=== PATIENT | male | born 2000 | race Caucasian/White ===

== ENCOUNTER 2020-09-07 18:53 | Emergency (ER) | payer OTHER ==
[~2020-09-07] VITALS: Ht 182.9 cm; Wt 79.4 kg
[2020-09-07] MEDS ORDERED: DULO1CAP6 PO (19:02)
[2020-09-07] MEDS ORDERED: ONDANSETRON 4MG/2ML VIAL IV ONE (19:45)
[2020-09-07] MEDS ORDERED: NS 1,000 ML IV ONE (19:45)
[2020-09-07] MEDS ORDERED: KETOROLAC 30 MG/ML 1ML VIAL IV ONE (19:45)
[2020-09-07 19:50] LABS: BASO % 0.2 % (0.0-1.0); EOS % 0.2 % (0.0-3.0); HEMOGLOBIN 15.4 g/dl (13.5-17.5); LYMPH # 0.8 10^3/uL (1.5-5.0); LYMPH % 8.6 % (24.0-44.0); MEAN CORPUSCULAR HEMOGLOBIN 31.2 pg (27.0-33.0); MEAN CORPUSCULAR HGB CONC 33.5 g/dl (32.0-36.5); MEAN CORPUSCULAR VOLUME 93.1 fl (80.0-96.0); MONO # 0.6 10^3/uL (0.0-0.8); MONO % 6.6 % (2.0-8.0); NEUTROPHILS # 7.6 10^3/uL (1.5-8.5); NEUTROPHILS % 84.2 % (36.0-66.0); PLATELET COUNT, AUTOMATED 210 10^3/uL (150-450); RED BLOOD COUNT 4.94 10^6/uL (4.30-6.10); WHITE BLOOD COUNT 9.1 10^3/uL (4.0-10.0)
[2020-09-07 20:19] LABS: ALBUMIN 4.7 GM/DL (3.2-5.2); BILIRUBIN,DIRECT 0.2 MG/DL (0.0-0.2)
--- NOTE | 2020-09-07 20:21 | REPVR ---
PROCEDURE INFORMATION: Exam: CT Abdomen And Pelvis Without Contrast Exam date and time: 09/07/2020 7:52 PM Age: 20 years old Clinical indication: Abdominal pain; Additional info: Left flank/lateral abdominal pain; R/O stone TECHNIQUE: Imaging protocol: Computed tomography of the abdomen and pelvis without contrast. Radiation optimization: All CT scans at this facility use at least one of these dose optimization techniques: automated exposure control; mA and/or kV adjustment per patient size (includes targeted exams where dose is matched to clinical indication); or iterative reconstruction. COMPARISON: No relevant prior studies available. FINDINGS: Liver: Normal. No mass. Gallbladder and bile ducts: Normal. No calcified stones. No ductal dilation. Pancreas: Normal. No ductal dilation. Spleen: Normal. No splenomegaly. Adrenal glands: Normal. No mass. Kidneys and ureters: There is a 4 mm. obstructive ureteral calculus located proximal left ureter at the UV junction resulting in [id number] proximal hydroureteronephrosis. There is no significant periureteral and perinephric stranding. No urinoma demonstrated. Stomach and bowel: Unremarkable. No obstruction. No mucosal thickening. Appendix: No evidence of appendicitis. Intraperitoneal space: Unremarkable. No free air. No significant fluid collection. Vasculature: Unremarkable. No abdominal aortic aneurysm. Lymph nodes: Unremarkable. No enlarged lymph nodes. Urinary bladder: Unremarkable as visualized. Reproductive: Unremarkable as visualized. Bones/joints: Unremarkable. No acute fracture. Soft tissues: Unremarkable. IMPRESSION: 4 mm obstructive proximal left ureteral calculus as described above. Electronically signed by: Jg Bull On 09/07/2020 20:21:45 PM
[2020-09-07] MEDS ORDERED: CIPR-249 PO (22:25)
[2020-09-07] MEDS ORDERED: ONDA4TAB6 PO (22:25)
[2020-09-07] MEDS ORDERED: KETO10TAB PO (22:25)
[2020-09-07] MEDS ORDERED: FLOM0.4C39 PO (22:25)
[2020-09-07] MEDS ORDERED: PERC5TAB12 PO (22:25)
[2020-09-07] MEDS ORDERED: TAMSULOSIN 0.4 MG CAP PO ONE (22:30)
[2020-09-07] MEDS ORDERED: CIPROFLOXACIN 500MG TABLET PO ONE (22:30)
[2020-09-07 22:44] VITALS: BP 126/66
== END 2020-09-07 22:59 | disposition home or self-care (01) ==
LOC: M ED 18:53
DX: N20.1 Calculus of ureter (principal)
CPT/HCPCS: 74176; 80076; 81001; 83690; 85025; 87086; 96361; 96374; 99284; J1885; J2405

== ENCOUNTER → 2020-09-24 | Outpatient (CLI) | payer OTHER ==
[~2020-09-24] MED LIST: CIPR-249 PO; DULO1CAP6 PO; FLOM0.4C39 PO; KETO10TAB PO; ONDA4TAB6 PO; PERC5TAB12 PO
--- NOTE | 2020-09-25 03:13 | REPPI ---
INDICATION: URETERAL STONE W/HYDRONEPHROTICS COMPARISON: None. TECHNIQUE: Supine view of the abdomen and pelvis. FINDINGS: A rounded 2-3 mm calcification is identified in the right hemipelvis likely phlebolith. The obstructing left ureteral calculus on CT dated 09/07/2020 is not visible on current examination. Further evaluation of the urinary tract system is limited due to technique and bowel gas pattern. Mild fecal stasis. No bowel obstruction. Skeletal structures are intact. No foreign body. IMPRESSION: Unremarkable examination. No obvious urinary tract calcifications identified. <Electronically signed by Mayco Hogan > 09/25/20 [id number]
== END ==
LOC: M PLAIMG 12:51
PROVIDERS: ATTEND Nurse Practitioner Women's Health
DX: N13.2 Hydronephrosis with renal and ureteral calculous obstruction (principal)

== ENCOUNTER 2021-08-28 13:59 | Inpatient (IN) | payer OTHER ==
[~2021-08-28] VITALS: Ht 177.8 cm; Wt 82.7 kg
[2021-08-28] MEDS ORDERED: IBUP200T46 PO (14:15)
[2021-08-28] MEDS ORDERED: AMPH1CAP14 (14:15)
[2021-08-28 17:41] LABS: HEMATOCRIT 47.4 % (42.0-52.0); HEMOGLOBIN 15.9 g/dl (13.5-17.5); MEAN CORPUSCULAR HEMOGLOBIN 31.3 pg (27.0-33.0); MEAN CORPUSCULAR HGB CONC 33.5 g/dl (32.0-36.5); MEAN CORPUSCULAR VOLUME 93.3 fl (80.0-96.0); PLATELET COUNT, AUTOMATED 223 10^3/uL (150-450); RED BLOOD COUNT 5.08 10^6/uL (4.30-6.10); WHITE BLOOD COUNT 5.1 10^3/uL (4.0-10.0)
[2021-08-28 18:01] LABS: AMPHETAMINES LEVEL URINE NEGATIVE (NEGATIVE); BARBITURATES URINE NEGATIVE (NEGATIVE); BENZODIAZEPINES URINE NEGATIVE (NEGATIVE); CANNABINOIDS URINE NEGATIVE (NEGATIVE); COCAINE METABOLITE URINE NEGATIVE (NEGATIVE); METHADONE URINE NEGATIVE (NEGATIVE); OPIATES URINE NEGATIVE (NEGATIVE); PHENCYCLIDINE URINE NEGATIVE (NEGATIVE)
[2021-08-28 18:13] LABS: ACETAMINOPHEN LEVEL < 2.0 UG/ML (10.0-30.0); ALBUMIN 4.3 GM/DL (3.2-5.2); ALT/SGPT 39 U/L (12-78); BILIRUBIN,DIRECT 0.2 MG/DL (0.0-0.2); BILIRUBIN,TOTAL 0.5 MG/DL (0.2-1.0); BLOOD UREA NITROGEN 25 MG/DL (7-18); CALCIUM LEVEL 9.3 MG/DL (8.5-10.1); CARBON DIOXIDE LEVEL 29 MEQ/L (21-32); CHLORIDE LEVEL 107 MEQ/L (98-107); ETHYL ALCOHOL (ETHANOL) < 0.003 % (0.000-0.010); GLOMERULAR FILTRATION RATE > 60.0 (>60); GLUCOSE, FASTING 88 MG/DL (70-100); POTASSIUM SERUM 4.2 MEQ/L (3.5-5.1); SALICYLATE LEVEL < 1.7 MG/DL (5.0-30.0); SODIUM LEVEL 140 MEQ/L (136-145); THYROID STIMULATING HORMONE 0.817 uIU/ML (0.358-3.740); TOTAL PROTEIN 7.6 GM/DL (6.4-8.2)
[2021-08-28] MEDS ORDERED: LORazepam 1 MG TAB PO ONE (22:45)
[2021-08-29] MEDS ORDERED: AMPHETAMINE/DEXTROAMPHETAMINE 5 MG *ER* CAPSULE (ADDERALL XR) PO SCH (09:00)
[2021-08-29 09:24] LABS: RSV AMPLIFICATION NEGATIVE (NEGATIVE)
[2021-08-29] MEDS ORDERED: MULT-4 PO (11:12)
[2021-08-29] MEDS ORDERED: HOME MED LIST COMPLETE! XX SCH (11:15)
[2021-08-29] MEDS ORDERED: MOM 30ML SUSPENSION UDC PO PRN (15:35)
[2021-08-29] MEDS ORDERED: MAALOX 30 ML SUSP *UDC PO PRN (15:35)
[2021-08-29] MEDS ORDERED: ACETAMINOPHEN TAB 650MG DOSE (2X325MG) PO PRN (15:35)
[2021-08-29 17:33] VITALS: BP 140/76
[2021-08-29] MEDS: traZODone 50 MG TAB PO PRN (20:59)
[2021-08-30 07:14] VITALS: BP 126/64
[2021-08-30 07:16] VITALS: BP 126/64
[2021-08-30] MEDS ORDERED: IBUPROFEN 600MG TAB PO PRN (16:10)
[2021-08-30 18:55] VITALS: BP 158/79
[2021-08-31 06:44] VITALS: BP 118/54
[2021-08-31 18:58] VITALS: BP 132/89
[2021-08-31] MEDS: traZODone 50 MG TAB PO PRN (20:10)
[2021-09-01 06:41] VITALS: BP 124/65
[2021-09-01 16:30] VITALS: BP 134/83
[2021-09-01] MEDS: traZODone 50 MG TAB PO PRN (21:07)
[2021-09-02 06:47] VITALS: BP 140/69
== END 2021-09-02 13:06 | disposition home or self-care (01) | DRG 0 ==
LOC: M ED 13:59 → M ED INP 08-29 15:33 → M PSY 08-29 16:10
PROVIDERS: ADMIT Psychiatry & Neurology Psychiatry; ATTEND Psychiatry & Neurology Psychiatry
DX: F32.A Depression, unspecified (principal); G43.909 Migraine, unspecified, not intractable, without status migrainosus; R45.851 Suicidal ideations; Z20.822 Contact with and (suspected) exposure to COVID-19